=== PATIENT | female | born 1950 ===

== ENCOUNTER 2023-08-29 11:45 | Inpatient (IN) | payer OTHER ==
[2023-09-04 18:18] LABS: HEMATOCRIT 40.1 % (36.0-45.00); HEMOGLOBIN 13.4 g/dL (12.0-15.00); MEAN CELL VOLUME 94.1 fL (80.00-100.00); MEAN CORPUSCULAR HEMOGLOBIN 31.5 pg (27.00-32.0); MEAN CORPUSCULAR HGB CONC 33.5 g/dl (32.0-36.0); PLATELET COUNT 266 K/uL (150-450); RED BLOOD COUNT 4.26 M/uL (4.00-6.00); RED CELL DISTRIBUTION WIDTH 13.5 % (11.5-14.5)
== END 2023-09-05 12:00 | disposition expired | DRG 329 ==
LOC: SURG 09-04 07:00 → O/R 09-04 08:06 → SURG 09-04 11:45 → SURH 09-04 13:47 → O/R 09-05 11:39
PROVIDERS: ADMIT Surgery; ATTEND Surgery
PROC: 0DBP4ZZ Excision of Rectum, Percutaneous Endoscopic Approach (ICD-10-PCS; 2023-09-04)
PROC: 0DJD8ZZ Inspection of Lower Intestinal Tract, Via Natural or Artificial Opening Endoscopic (ICD-10-PCS; 2023-09-04)
PROC: 8E0W4CZ Robotic Assisted Procedure of Trunk Region, Percutaneous Endoscopic Approach (ICD-10-PCS; 2023-09-04)
PROC: 0DTN4ZZ Resection of Sigmoid Colon, Percutaneous Endoscopic Approach (ICD-10-PCS; principal; 2023-09-04 07:00)
PROC: 5A12012 Performance of Cardiac Output, Single, Manual (ICD-10-PCS; 2023-09-05)
PROC: 0BH17EZ Insertion of Endotracheal Airway into Trachea, Via Natural or Artificial Opening (ICD-10-PCS; 2023-09-05)
DX: K57.30 Diverticulosis of large intestine without perforation or abscess without bleeding (principal); I21.3 ST elevation (STEMI) myocardial infarction of unspecified site; I21.A9 Other myocardial infarction type; I97.121 Postprocedural cardiac arrest following other surgery; I97.190 Other postprocedural cardiac functional disturbances following cardiac surgery; Z20.822 Contact with and (suspected) exposure to COVID-19; I25.10 Atherosclerotic heart disease of native coronary artery without angina pectoris; I11.9 Hypertensive heart disease without heart failure
CPT/HCPCS: 44207; 44213; 45300; S2900